=== PATIENT | male | born 1990 | race Caucasian/White ===

== ENCOUNTER 2020-01-11 10:22 | Observation (INO) ==
[2020-01-11 11:03] LABS: Bilirubin,Urine Negative (Negative); Blood,Urine Negative (Negative); Clarity,Urine Clear (Clear); Color,Urine Yellow (Yellow); Glucose,Urine (UA) >=1000 mg/dL (Normal); Ketones,Urine 40 mg/dL (Negative); Leukocyte Esterase,Urine Negative (Negative); Nitrite,Urine Negative (Negative); PH,Urine 5.5 pH Units (5.0-8.0); Protein,Urine Negative (Neg-Trace); Specific Gravity,Urine > 1.030 (1.010-1.025); Urobilinogen,Urine Normal (Normal)
[2020-01-11 11:08] LABS: Basophils # 0.1 K/mcL (0.0-0.2); Basophils % 0.3 %; Hemoglobin 14.9 g/dL (12.9-16.9); Immature Granulocytes % 0.2 % (0-4); Lymphocytes # 1.5 K/mcL (0.6-4.6); Lymphocytes % 10.3 %; Mean Corpuscular HGB Conc 32.4 g/dL (31.6-35.5); Mean Corpuscular Hemoglobin 27.4 pg (28.0-33.3); Mean Corpuscular Volume 84.7 fL (83.0-100.0); Mean Platelet Volume 10.5 fL (9.4-12.4); Neutrophils # 11.7 K/mcL (1.6-8.9); Platelet Count 280 K/mcL (140-400); Red Blood Count 5.43 M/mcL (4.19-5.50); Segmented Neutrophils % 82.2 %; White Blood Count 14.3 K/mcL (4.3-11.1)
[2020-01-11 11:27] LABS: BUN/Creatinine Ratio 14 (6-26); Blood Urea Nitrogen 13 mg/dL (6-20); Calcium 9.9 mg/dL (8.6-10.3); Carbon Dioxide 25 mEq/L (23-29); Chloride 93 mEq/L (98-107); Glucose 214 mg/dL (70-105); Osmolality,Calculated 279 (280-300); Potassium 4.2 mEq/L (3.5-5.1); Sodium 131 mEq/L (136-145); eGFR For African Americans > 60 (> 60); eGFR For Non-African Americans > 60 (> 60)
[2020-01-11] MEDS ORDERED: 0.9 % Sodium Chloride 1,000 ML IVC ONE (12:43)
[2020-01-11] MEDS ORDERED: Piperacillin/Tazobactam 3.375 GM in 0.9 % Sodium Chloride Mini Bag 100 ML IVPB ONE (12:47)
[2020-01-11] MEDS ORDERED: *HR* HYDROmorphone (PF) 1 MG/ML SYRINGE IVP ONE (12:49)
[2020-01-11] MEDS ORDERED: Ondansetron 4 MG/2 ML VIAL IVP ONE ×3 (12:50→21:37)
[2020-01-11] MEDS ORDERED: 0.9 % Sodium Chloride 1,000 ML IVC SCH (14:45)
[2020-01-11] MEDS ORDERED: Bupivacaine/EPI 1:200k 0.5%PF 10 ML VIAL ONE (19:44)
[2020-01-11] MEDS ORDERED: *HR* HYDROmorphone PF 0.5 MG/0.5 ML SYRINGE IVP PRN ×2 (19:50→21:37)
[2020-01-11] MEDS ORDERED: *HR* Meperidine 25 MG/ML SYRINGE IVP PRN ×2 (19:50→21:37)
[2020-01-11] MEDS ORDERED: *HR* OxyCODONE Immed Rel 5 MG TABLET PO PRN ×2 (19:50→21:37)
[2020-01-11] MEDS ORDERED: Acetaminophen IV 1,000 MG/100 ML INFUS..BTL ONE (19:53)
[2020-01-11] MEDS ORDERED: Lidocaine HCL 4 ML Topical Solution (Laryng-O-Jet Kit Sterile Pak) TP ONE (19:56)
[2020-01-11] MEDS ORDERED: *HR* Rocuronium Bromide 50 MG/5 ML VIAL ONE (19:56)
[2020-01-11] MEDS ORDERED: *HR* FentaNYL (PF) 100 MCG/2 ML VIAL ONE ×2 (19:56→20:38)
[2020-01-11] MEDS ORDERED: *HR* Midazolam HCl 2 MG/2 ML VIAL ONE (19:56)
[2020-01-11] MEDS ORDERED: Lidocaine -MPF 2% 2 ML VIAL ONE (19:56)
[2020-01-11] MEDS ORDERED: *HR* Succinylcholine 200 MG/10 ML VIAL IVP ONE (19:56)
[2020-01-11] MEDS ORDERED: Ondansetron 4 MG/2 ML VIAL ONE (19:57)
[2020-01-11] MEDS ORDERED: Ketorolac 30 MG/ML VIAL ONE (19:57)
[2020-01-11] MEDS ORDERED: Dexamethasone 4 MG/ML VIAL ONE (19:57)
[2020-01-11] MEDS ORDERED: Piperacillin/Tazobactam 3.375 GM in 0.9 % Sodium Chloride Mini Bag 100 ML IVPB SCH (20:00)
[2020-01-11] MEDS ORDERED: *HR* OxyCODONE/APAP 5/325 TABLET PO PRN (20:58)
[2020-01-11] MEDS: 0.9 % Sodium Chloride 1,000 ML IVC SCH (22:03)
[2020-01-11] MEDS: *HR* OxyCODONE/APAP 5/325 TABLET PO PRN (22:23)
[2020-01-12] MEDS: Piperacillin/Tazobactam 3.375 GM in 0.9 % Sodium Chloride Mini Bag 100 ML IVPB SCH ×3 (03:59→19:25)
[2020-01-12] MEDS: *HR* OxyCODONE/APAP 5/325 TABLET PO PRN ×3 (07:37→21:38)
[2020-01-12] MEDS: 0.9 % Sodium Chloride 1,000 ML IVC SCH (07:40)
[2020-01-12] MEDS: *HR* Metformin 500 MG TABLET PO SCH ×2 (07:43→16:02)
[2020-01-13] MEDS: Piperacillin/Tazobactam 3.375 GM in 0.9 % Sodium Chloride Mini Bag 100 ML IVPB SCH (03:19)
[2020-01-13] MEDS: *HR* Metformin 500 MG TABLET PO SCH (07:18)
[2020-01-13 09:52] VITALS: BP 160/94
== END 2020-01-13 11:46 | disposition home or self-care (01) ==
LOC: EMEROOARM 10:22 → 3BNU 10:22
PROVIDERS: ADMIT Internal Medicine; ATTEND Internal Medicine